=== PATIENT | female | born 1995 | race Two or more races ===

== ENCOUNTER 2022-12-23 23:05 | Emergency (ER) | payer MEDICAID ==
[~2022-12-23] VITALS: Ht 157.5 cm; Wt 50.0 kg
[2022-12-23 23:34] VITALS: BP 114/70
[2022-12-24 01:00] LABS: Albumin 3.7 g/dL (3.4-5.0); BUN/Creatinine Ratio 32.3; Calcium 9.1 mg/dL (8.5-10.1); Potassium 3.9 mmol/L (3.5-5.1)
[2022-12-24 01:05] LABS: Basophils # (auto) 0 10 ^3/uL (0-0.2); Basophils % (auto) 0.5 % (0.0-2.0); Eosinophils # (auto) 0.1 10 ^3/uL (0-0.8); Eosinophils % (auto) 1.4 % (0.0-7.0); Hematocrit 40.5 % (36.0-46.0); Hemoglobin 14.2 g/dL (12.2-16.2); Lymphocytes # (auto) 2.4 10 ^3/uL (0.4-5.4); Lymphocytes % (auto) 31.3 % (10.0-50.0); Mean Corpuscular Hemoglobin 32.2 pg (28.0-32.0); Mean Corpuscular Hgb Conc. 35.2 g/dL (32.0-36.0); Mean Corpuscular Volume 91.6 fL (80.0-100.0); Monocytes # (auto) 0.7 10 ^3/uL (0-1.3); Monocytes % (auto) 9.5 % (0.0-12.0); Neutrophils # (auto) 4.5 10 ^3/uL (1.6-8.6); Neutrophils % (auto) 57.3 % (37.0-80.0); Nucleated Red Blood Cells % 0.1 %; Red Blood Cells 4.43 10^6/uL (4.0-5.20); Red Cell Distribution Width 13.4 % (11.8-14.3); White Blood Cell 7.8 10^3/uL (4.4-10.8)
[2022-12-24 01:12] LABS: Bilirubin, Total 0.2 mg/dL (0.2-1.0); Total Protein 7.3 g/dL (6.4-8.2)
[2022-12-24 02:39] LABS: Urine Blood 2+ /uL (Negative); Urine Specific Gravity 1.036 (1.001-1.035)
[2022-12-24] MEDS ORDERED: cefTRIAXone W LIDOCAINE 1 GM IM IM ONE (03:45)
== END 2022-12-24 05:18 | disposition home or self-care (01) ==
LOC: ER 23:05
DX: R10.9 Unspecified abdominal pain (principal); R53.1 Weakness
CPT/HCPCS: 36415; 80053; 81003; 81025; 83690; 85025; J0696

== ENCOUNTER 2023-01-01 11:17 | Emergency (ER) | payer MEDICAID ==
[~2023-01-01] VITALS: Ht 154.9 cm; Wt 52.2 kg
[2023-01-01 11:44] VITALS: BP 112/77
[2023-01-01 11:51] LABS: Basophils # (auto) 0 10 ^3/uL (0-0.2); Basophils % (auto) 0.5 % (0.0-2.0); Eosinophils # (auto) 0.1 10 ^3/uL (0-0.8); Eosinophils % (auto) 0.6 % (0.0-7.0); Hematocrit 41.9 % (36.0-46.0); Hemoglobin 14.3 g/dL (12.2-16.2); Lymphocytes % (auto) 23.6 % (10.0-50.0); Mean Corpuscular Hemoglobin 31.4 pg (28.0-32.0); Mean Corpuscular Hgb Conc. 34.2 g/dL (32.0-36.0); Mean Corpuscular Volume 91.9 fL (80.0-100.0); Monocytes # (auto) 0.6 10 ^3/uL (0-1.3); Monocytes % (auto) 7.2 % (0.0-12.0); Neutrophils # (auto) 5.7 10 ^3/uL (1.6-8.6); Neutrophils % (auto) 68.1 % (37.0-80.0); Nucleated Red Blood Cells % 0.1 %; Red Blood Cells 4.56 10^6/uL (4.0-5.20); Red Cell Distribution Width 13.5 % (11.8-14.3); White Blood Cell 8.4 10^3/uL (4.4-10.8)
[2023-01-01 12:15] LABS: Albumin 3.8 g/dL (3.4-5.0); BUN/Creatinine Ratio 28.6; Calcium 9.3 mg/dL (8.5-10.1)
[2023-01-01 12:17] LABS: Bilirubin, Total 0.3 mg/dL (0.2-1.0); Total Protein 7.3 g/dL (6.4-8.2)
[2023-01-01] MEDS ORDERED: PANT40TA2 PO (12:58)
== END 2023-01-01 14:02 | disposition home or self-care (01) ==
LOC: ER 11:17
DX: K29.70 Gastritis, unspecified, without bleeding (principal); R10.2 Pelvic and perineal pain
CPT/HCPCS: 36415; 80053; 84702; 85025